=== PATIENT | female | born 1975 | race Two or more races ===

== ENCOUNTER 2023-05-08 13:41 | Emergency (ER) | payer OTHER ==
[~2023-05-08] VITALS: Ht 152.4 cm; Wt 83.5 kg
[~2023-05-08 13:41] MED LIST: PRILOSEC10 MG; SYNTHROID50 MCG PO
[2023-05-08] MEDS ORDERED: NASAL MIST126 ML NASAL (21:58)
[2023-05-08] MEDS ORDERED: DICLOFENAC POTA50 MG PO (21:58)
== END 2023-05-08 22:16 | disposition home or self-care (01) ==
LOC: ER
DX: M25.511 Pain in right shoulder (principal)

== ENCOUNTER 2023-06-21 11:10 | Emergency (ER) | payer OTHER ==
[~2023-06-21] VITALS: Ht 162.6 cm; Wt 68.0 kg
[~2023-06-21 11:10] MED LIST changes: +DICLOFENAC POTA50 MG PO; +NASAL MIST126 ML NASAL
[2023-06-21] MEDS ORDERED: LOSARTAN POTASS50 MG PO (11:21)
[2023-06-21] MEDS ORDERED: HYDRODIURIL12.5 MG PO (11:22)
[2023-06-21 12:06] LABS: HEMATOCRIT 36.6 % (36.0-45.00); HEMOGLOBIN 12.2 g/dL (12.0-15.00); MEAN CELL VOLUME 89.8 fL (80.00-100.00); MEAN CORPUSCULAR HEMOGLOBIN 29.8 pg (27.00-32.0); MEAN CORPUSCULAR HGB CONC 33.2 g/dl (32.0-36.0); PLATELET COUNT 278 K/uL (150-450); RED BLOOD COUNT 4.07 M/uL (4.00-6.00); RED CELL DISTRIBUTION WIDTH 14.7 % (11.5-14.5)
== END 2023-06-21 12:58 | disposition home or self-care (01) ==
LOC: ER 11:10
PROVIDERS: Emergency Medicine
DX: U07.1 COVID-19 (principal); I10 Essential (primary) hypertension; E03.9 Hypothyroidism, unspecified

== ENCOUNTER 2023-07-24 13:55 | Emergency (ER) | payer OTHER ==
[~2023-07-24] VITALS: Ht 152.4 cm; Wt 83.9 kg
[~2023-07-24 13:55] MED LIST changes: +HYDRODIURIL12.5 MG PO; +LOSARTAN POTASS50 MG PO
[2023-07-24] MEDS ORDERED: CETIRIZINE HCL 5 MG/5 ML ML PO STA (16:35)
[2023-07-24] MEDS ORDERED: GUAIFENESIN/DEXTROMETHORPHAN 100 MG/5 ML ML PO STA (16:36)
[2023-07-24] MEDS ORDERED: METHYLPREDNISOLONE SOD SUCC 40 MG VIAL IM STA (16:36)
[2023-07-24 17:09] LABS: HEMATOCRIT 37.1 % (36.0-45.00); HEMOGLOBIN 12.6 g/dL (12.0-15.00); MEAN CELL VOLUME 89.9 fL (80.00-100.00); MEAN CORPUSCULAR HEMOGLOBIN 30.5 pg (27.00-32.0); MEAN CORPUSCULAR HGB CONC 33.9 g/dl (32.0-36.0); PLATELET COUNT 256 K/uL (150-450); RED BLOOD COUNT 4.13 M/uL (4.00-6.00); RED CELL DISTRIBUTION WIDTH 14.6 % (11.5-14.5)
[2023-07-24 17:30] LABS: CALCIUM 9.1 mg/dL (8.5-10.1); CREATININE SERUM 0.62 mg/dL (0.55-1.02); GFR 102.31; POTASSIUM 3.56 mEq/L (3.5-5.1)
[2023-07-24] MEDS ORDERED: ZYRTEC10 MG PO (18:39)
[2023-07-24] MEDS ORDERED: LEVOFLOXACIN750 MG PO (18:39)
[2023-07-24] MEDS ORDERED: SINGULAIR10 MG PO (18:39)
[2023-07-24] MEDS ORDERED: MUCINEX D ER 61 EACH PO (18:39)
[2023-07-24] MEDS ORDERED: DEXAMETHASONE4 MG PO (18:39)
== END 2023-07-24 19:27 | disposition home or self-care (01) ==
LOC: ER 13:56
PROVIDERS: General Practice
DX: R53.81 Other malaise (principal); J06.9 Acute upper respiratory infection, unspecified; Z20.822 Contact with and (suspected) exposure to COVID-19; I10 Essential (primary) hypertension; E03.8 Other specified hypothyroidism

== ENCOUNTER 2023-11-28 10:32 | Emergency (ER) | payer OTHER ==
[~2023-11-28] VITALS: Ht 152.4 cm; Wt 81.6 kg
[~2023-11-28 10:32] MED LIST changes: +COZAAR50 MG PO; +DEXAMETHASONE4 MG PO; +DUI500 PO; +ELIQUIS2.5 MG PO; +LEVOFLOXACIN750 MG PO; +MUCINEX D ER 61 EACH PO; +PERCOCET 5-3251 EACH PO; +SINGULAIR10 MG PO; +SULFASALAZINE500 M1 PO; +SYNTHROID100 MCG PO; +ZYRTEC10 MG PO
== END 2023-11-28 13:24 | disposition home or self-care (01) ==
LOC: ER 10:33
DX: J06.9 Acute upper respiratory infection, unspecified (principal); J00 Acute nasopharyngitis [common cold]; Z20.822 Contact with and (suspected) exposure to COVID-19; I10 Essential (primary) hypertension; E03.8 Other specified hypothyroidism